=== PATIENT | female | born 2000 ===

== ENCOUNTER 2025-08-04 16:36 | Inpatient (IN) | payer OTHER, SELFPAY ==
--- OUTSIDE RECORDS SUMMARY | 2025-08-03 09:50 | XMS_ITS | Encounter Summary ---
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 Recently Administered Medications Times are shown in EDT. Scheduled Medication Order 08/02/2025 08/03/2025 08/04/2025 haloperidoL (HALDOL) tablet 5 mg (COMPLETED) 5 mg, Oral, Once, 1 dose, On Fri08/03/25 at 1038 1045 (Given - Provider: Etelvina Coe RN) haloperidol lactate (HALDOL) injection 5 mg (COMPLETED) 5 mg, Intramuscular, Once, 1 dose, On Fri08/03/25 at 1635 1648 (Given - Provider: Etelvina Coe RN) LORazepam (ATIVAN) injection 2 mg (COMPLETED) 2 mg, Intramuscular, Once, 1 dose, On Fri08/03/25 at 1635 1647 (Given - Provider: Etelvina Coe RN) LORazepam (ATIVAN) tablet 2 mg (COMPLETED) 2 mg, Oral, Once, 1 dose, On Fri08/03/25 at 1038 1045 (Given - Provider: Etelvina Coe RN) melatonin Tab 5 mg (COMPLETED) 5 mg, Oral, Once, 1 dose, On Yumiko 08/04/25 at 0314 0316 (Given - Provid er: Samanta Humphrey RN) PRN Medication Order 08/02/2025 08/03/2025 08/04/2025 hydrOXYzine pamoate (VISTARIL) capsule 25 mg 25 mg, Oral, 3 times daily PRN, Starting on Yumiko 08/04/25 at 0925, Until Discontinued, anxiety 0932 (Given - Provid er: Reene Silva RN)1423 (Given - Provider: Renee Silva RN) documented in this encounter Care Teams Junction Maker Relationship Specialty Start Date End Date Vandana Darling NP [address] [place] [address] PCP - General 08/03/25 Vandana Darling NP [address] [place] [address] PCP - Insurance Assigned PCP 08/04/25 documented as of this encounter
--- OUTSIDE RECORDS SUMMARY | 2025-08-04 17:25 | XMS_ITS | Encounter Summary ---
Author Organization [facility] Address [address] [place] [address] Care Team Providers Care Legal Biller Name Role Phone Vandana Darling NP Primary Care Provider [phone] Encounter Details Date Type Department Care Team (Latest Contact Info) Description 08/03/2025 Travel Social History Tobacco Use Types Packs/Day Years [...] any time in the past 12 m [facility], were you homeless or living in a care home (including now)? Patient declined 08/03/2025 [facility] Utilities Answer Date Recorded In the past [...] or rent on time? Patient declined 08/03/20 Number of Places Lived in the Last [...] on file documented as of this encounter Functional Status * Are you deaf or do you have serious difficulty hearing? Answer Date of Assessment Author No 08/03/2025 10:18 AM EDT Miles Klein * Are you blind or do you have serious difficulty seeing, even when wearing glasses? Answer Date of Assessment Author No 08/03/2025 10:18 AM EDT Miles Klein * Do you have serious difficulty walking or climbing stairs? Answer Date of Assessment Author No 08/03/2025 10:18 AM EDT Miles Klein * Do you have difficulty dressing or bathing? Answer Date of Assessment Author No 08/03/2025 10:18 AM Miles Dickson * Because of a physical, mental, or emotional condition, do you have difficulty doing errands alone such as visiting the doctor? Answer Date of Assessment Author No 08/03/2025 10:18 AM Miles Dickson documented as of this encounter Mental Status * Because of a physical, mental, or emotional condition, do you have serious difficulty concentrating, remembering, or making decisions? Answer Entry Date Author No 08/03/2025 10:18 AM Miles Dickson documented in this encounter Plan of Treatment Not on file documented as of this encounter Visit Diagnoses Not on filedocumented in this encounter Care Teams Legal Biller Relationship Specialty Start Date End Date Vandana Darling NP [address] [place] [id number] PCP - General 08/03/25 documented as of this encounter
--- OUTSIDE RECORDS SUMMARY | 2025-08-04 17:25 | XMS_ITS | Clinical Summary ---
Author Organization [facility] Address [address] [place] [address] Care Team Providers Care Hooker Operator Name Role Phone Vandana Darling JAVA CONSULTANT Primary Care Provider [phone] Vandana Darling JAVA CONSULTANT Unavailable Allergies No known active allergies Encounters Date Type Department Care Team Description 08/03/2025 9:50 AM EDT - 08/04/2025 2:31 PM EDT Hospital Encounter [facility] Emergency Department [address] [place] [address] Frances Jernigan MD Landry, Alden M, MD Brody, Joshua, MD Gershaw, Rachel, Suicidal ideation (Primary Dx); Post traumatic stress disorder (PTSD) [F43.10]; Bipolar affective disorder, remission status unspecified (HCC) [F31.9]; Borderline personality disorder in adult (HCC) [F60.3]; Schizoaffective disorder, bipolar type (HCC) [F25.0] Discharge Disposition: Psychiatric Hospital 08/03/2025 Travel from Last 3 Months Social History Tobacco Use Types Packs/Day Years [...] any time in the past 12 m [facility], were you homeless or living in a assisted (including now)? Patient declined 08/03/2025 [facility] Utilities Answer Date Recorded In the past [...] Not on file N ot on file Last Filed Vital Signs Vital Sign Reading [...] Mass Index 33.63 08/03/2025 10:03 AM EDT Plan of Treatment Health Maintenance Due Date Last Done Comments Depression Screening 2005 Chlamydia and Gonorrhea Screening 2016 Hepatitis C Screening 2019 DTaP,Tdap,and Td Vaccines (1 - Tdap) 2020 Cervical Cancer Screening 2022 Pap Smear 2022 COVID-19 Vaccine ( - 2023-2 5 season) 2025 Influenza Vaccine (#1) 2025 Blood Pressure 08/04/2026 08/04/2025 Meningococcal B Vaccines Aged Out No longer eligible based on patient's age to complete this topic Meningococcal Vaccines Aged Out No lo nger eligible based on patient's age to complete this topic Pneumococcal Vaccine: Pediat rics (0 to 5 Years) and At-Risk Patients (6 to 64 Years) Aged Out No longer eligi ble based on patient's age to complete this topic Procedures Procedure Name Priority Date/Time Associated Diagnosis Comments DRUG SCREEN, URINE STAT 08/04/2025 3: 12 AM EDT ECG 12-LEAD STAT 08/03/2025 12:17 PM EDT CBC AND DIFFERENTIAL STAT 08/03/2025 10:16 AM EDT RAINBOW DRAW STAT 08/03/2025 10:16 AM EDT CBC AND DIFFERENTIAL STAT 08/03/2025 10:16 AM EDT AWAD TOP STAT 08/03/2025 10:16 AM EDT LIGHT BLUE TOP STAT 08/03/2025 10:16 AM EDT HCG, QUANTITATIVE STAT 08/03/2025 10: 16 AM EDT TOXICOLOGY SCREEN, BLOOD STAT 08/03/2025 10:16 AM EDT BASIC METABOLIC PANEL STAT 08/03/2025 10:16 AM EDT from Last 3 Months Results * (ABNORMAL) Drug Screen, Urine (08/04/2025 3:12 AM EDT) [facility] Amphetamines Screen, Urine Negative Negative 08/04/2025 3:55 AM [facility] Barbiturates Screen, Urine Negative Negative 08/04/2025 3:55 AM [facility] Benzodiazepine Screen, Urine Positive(A) Negative 08/04/2025 3:55 AM [facility] Buprenorphine Screen, Urine Negative Negative 08/04/2025 3:55 AM [facility] Cannabinoids Screen, Urine Positive(A) Negative 08/04/2025 3:55 AM [facility] Cocaine Metabolite Screen, Urine Negative Negative 08/04/2025 3:55 AM [facility] Fentanyl Screen, Urine Negative Negative 08/04/2025 3:55 AM [facility] Methadone Screen, Urine Negative Negative 08/04/2025 3:55 AM [facility] Opiates Screen, Urine Negative Negative 08/04/2025 3:55 AM [facility] Oxycodone Screen, Urine Negative Negative 08/04/2025 3:55 AM [facility] Comment 08/04/2025 3:55 AM [facility] Comment: The cut-off concentration for a [...] 3:12 AM EDT 08/04/2025 3:15 AM EDT Frances Jernigan MD URINE ORDERABLES Final Result Performing Organization Address [facility] Co de Phone Number [facility] [address] [place] [address], [place] * ECG 12 lead (08/03/2025 12:17 PM EDT) 08/03/2025 12:1 8 PM EDT Narrative [facility] CV BIDM ECG - 08/03/2025 12:17 PM EDT See ED note for ECG result information. Frances Jernigan MD ECG ORDERABLES Final Result Performing Organization Address [facility] de Phone Number [facility] BIDM ECG * Awad Top Tube (08/03/2025 10:16 AM EDT) Awad Top Tube Received 08/03/2025 10:21 AM EDT [facility] Blood PERIPHERAL BLOOD SPECIMEN / Unknown Venipuncture / Unknown 08/03/2025 10:16 AM EDT 08/03/2025 10:16 AM EDT us Frances Jernigna MD LAB BLOOD ORDERABLES Final Res ult Performing Organization Address [facility] de Phone Number [facility] [address] [place] [address], [place] * CBC and Differential (08/03/2025 10:16 AM EDT) WBC 7.26 3.90 - 10.80 K/uL 08/03/2025 10:21 AM [facility] RBC 4.23 4.20 - 5.60 M/uL 08/03/2025 10:21 AM [facility] Hemoglobin 12.5 12.0 - 15.2 g/dL 08/03/2025 10:21 AM [facility] Hematocrit 36.4 35.0 - 45.0 % 08/03/2025 10:21 AM [facility] MCH 29.6 25.6 - 32.2 pg 08/03/2025 10:21 AM [facility] MCHC 34.3 32.0 - 36.0 g/dL 08/03/2025 10:21 AM [facility] MCV 86 82 - 102 fL 08/03/2025 10:21 AM [facility] RDW 12.9 12.0 - 15.0 % 08/03/2025 10:21 AM [facility] RDW-SD 40.0 32.9 - 69.6 fL 08/03/2025 10:21 AM [facility] Platelet Count 201 150 - 400 K/uL 08/03/2025 10:21 AM [facility] MPV 8.9 8.5 - 13.0 fL 08/03/2025 10:21 AM [facility] Neutrophil 70.0 43.0 - 74.0 % 08/03/2025 10:21 AM [facility] Lymphocyte 21.8 17.0 - 47.0 % 08/03/2025 10:21 AM [facility] Monocyte 5.9 5.0 - 12.0 % 08/03/2025 10:21 AM [facility] Eosinophil 1.8 0.1 - 6.0 % 08/03/2025 10:21 AM [facility] Basophil 0.4 0.0 - 2.0 % 08/03/2025 10:21 AM [facility] Immature Granulocyte (Hoffmeister, Myelo, Promyelocyte) 0.1 0.0 - 5.0 % 08/03/2025 10:21 AM [facility] Absolute Neutrophil Count 5.08 1.50 - 8.10 K/uL 08/03/2025 10:21 AM [facility] Absolute Immature Granulocyte (Hoffmeister, Myelo, Promyelocyte) 0.01 0.00 - 0.66 K/uL 08/03/2025 10:21 AM [facility] Absolute Lymphocyte Count 1.58 0.95 - 4.20 K/uL 08/03/2025 10:21 AM [facility] Absolute Monocyte Count 0.43 0.20 - 1.20 K/uL 08/03/2025 10:21 AM [facility] Absolute Eosinophil Count 0.13 0.06 - 0.60 K/uL 08/03/2025 10:21 AM [facility] Absolute Basophil Count 0.03 0.01 - 0.12 K/uL 08/03/2025 10:21 AM [facility] Blood PERIPHERAL BLOOD SPECIMEN / Unknown Venipuncture / Unknown 08/03/2025 10:16 AM EDT 08/03/2025 10:16 AM EDT Frances Jernigan MD LAB BLOOD ORDERABLES Final Res ult [facility] [address] [place] [address], [place] * (ABNORMAL) Plasma Toxicology Screen (08/03/2025 10:16 AM EDT) [facility] Acetaminophen Result,Blood <5(L) 10 - 30 ug/mL 08/03/2025 10:49 AM [facility] Alcohol <10 <10 mg/dL 08/03/2025 10:49 AM [facility] Salicylate Level, Blood 2 <30 mg/dL 08/03/2025 10:49 AM [facility] Blood PERIPHERAL BLOOD SPECIMEN / Unknown Venipuncture / Unknown 08/03/2025 10:16 AM EDT 08/03/2025 10:16 AM EDT us Frances Jernigan MD LAB BLOOD ORDERABLES Final Res ult [facility] [address] [place] [address], [place] * Blue Top (08/03/2025 10:16 AM EDT) Blue Top Tube Received 08/03/2025 12:01 PM EDT [facility] Blood PERIPHERAL BLOOD SPECIMEN / Unknown Venipuncture / Unknown 08/03/2025 10:16 AM EDT 08/03/2025 10:16 AM EDT Frances Jernigan MD LAB BLOOD ORDERABLES Final Res ult [facility] [address] [place] [address], [place] * HCG, Serum, QUANTitative (08/03/2025 10:16 AM EDT) [facility] hCG, Quant <5 <5 mIU/mL 08/03/2025 10:47 AM EDT [facility] Comment: Female Reference Range Non-: <0.5 - 4.90 Weeks of Gestation: 3RD Week 5.40 - 72.0 4TH Week 10.2 - 708 5TH Week 217 - 8245 6TH Week 152 - 09779 7TH Week 4059 - 420948 8TH Week 95554 - 315624 9TH Week 31258 - 641382 10TH Week 25531 - 472608 12TH Week 57715 - 109306 14TH Week 72523 - 44033 15TH Week 84092 - 54939 16TH Week 1040 - 21017 17TH Week 8240 - 15603 18TH Week 1275 - 66844 Blood PERIPHERAL BLOOD SPECIMEN / Unknown Venipuncture / Unknown 08/03/2025 10:16 AM EDT 08/03/2025 10:16 AM EDT us Frances Jernigan MD LAB BLOOD ORDERABLES Final Res ult [facility] [address] [place] [address], [place] * Basic Metabolic Panel (08/03/2025 10:16 AM EDT) [facility] Sodium 141 135 - 146 mmol/L 08/03/2025 10:43 AM [facility] Potassium 4.1 3.4 - 5.2 mmol/L 08/03/2025 10:43 AM [facility] Chloride 106 98 - 110 mmol/L 08/03/2025 10:43 AM [facility] Total CO2/Bicarbonat e 24 24 - 32 mmol/L 08/03/2025 10:43 AM [facility] Anion Gap 10 2 - 15 mmol/L 08/03/2025 10:43 AM [facility] BUN 12 6 - 20 mg/dL 08/03/2025 10:43 AM [facility] Creatinine, Blood 0.60 0.50 - 1.10 mg/dL 08/03/2025 10:43 AM [facility] Glucose, Blood 94 70 - 100 mg/dL 08/03/2025 10:43 AM [facility] Calcium 9.1 8.5 - 10.5 mg/dL 08/03/2025 10:43 AM [facility] Estimated GFR(CKD-EPI) >120 >=60 mL/min/BSA 08/03/2025 10:43 AM [facility] Blood PERIPHERAL BLOOD SPECIMEN / Unknown Venipuncture / Unknown 08/03/2025 10:16 AM EDT 08/03/2025 10:16 AM EDT us Frances Jernigan MD LAB BLOOD ORDERABLES Final Res ult [facility] [address] [place] [address], from Last 3 Months Insurance [facility] Advance Directives * Full Code (Latest Code Status on File) Date Activated Date Inactivated Comments 08/03/2025 12:48 PM Question Answer Comments Discussed with/per: Not Discussed Reason: Section 12 Care Teams Hooker Operator Relationship Specialty Start Date End Date Vandana Darling NP [address] [place] [address] PCP - General 08/03/25 Vandana Darling NP [address] [place] [address] PCP - Insurance Assigned PCP 08/04/25
[2025-08-04 17:53] VITALS: BMI 34.4
[2025-08-04 17:54] VITALS: BP 119/72; PULSE 88; RESP 16; TEMP 36.8; O2SAT 98
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
[2025-08-04 20:00] VITALS: BP 118/79; PULSE 88; RESP 18; TEMP 36.8; O2SAT 97
[2025-08-04] MEDS: Buprenorphine/Naloxone 2/0.5mg FILM 1 FILM SUBLINGUAL (20:19)
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
[2025-08-05 08:15] VITALS: BP 113/56; PULSE 79; TEMP 36.9; O2SAT 98
[2025-08-05] MEDS: Buprenorphine/Naloxone 2/0.5mg FILM 1 FILM SUBLINGUAL ×2 (08:41→20:52)
[2025-08-05] MEDS: Nicotine 21 MG PATCH.TD24 TRANSDERMA (08:46)
[2025-08-05 09:06] LABS: Hemoglobin A1C 111.9494 umol/L; Total Hemoglobin (HGBA1C) 3226.9199 umol/L
[2025-08-05 09:21] LABS: Alanine Aminotransferase 12 U/L (0-31); Albumin Level 5.0 g/dL (3.5-5.0); Alkaline Phosphatase 77 U/L (39-117); Anion Gap 10 (12-20); Aspartate Amino Transferase 30 U/L (5-31); Blood Urea Nitrogen 15 mg/dL (9-16); Calcium 9.6 mg/dL (8.4-10.2); Carbon Dioxide 26 mmol/L (22-29); Chloride 108 mmol/L (96-108); Cholesterol 146 mg/dL (<200); Creatinine Clr Calc Pharmacy 111.4; Estimated Glomerular Filt Rate > 60; HDL Cholesterol 53 mg/dL (>40); Potassium 4.2 mmol/L (3.3-5.1); Sodium 140 mmol/L (135-145); Total Protein 7.4 g/dL (6.5-8.0); Triglycerides 59 mg/dL (<150)
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
[2025-08-05] MEDS: guanFACINE HCl ER 1 MG TAB.ER.24H PO (12:37)
[2025-08-05 20:00] VITALS: BP 110/68; PULSE 96; RESP 19; TEMP 36.9; O2SAT 98
[2025-08-06 08:00] VITALS: BP 113/55; PULSE 61; TEMP 36.6; O2SAT 97
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
[2025-08-06] MEDS: Buprenorphine/Naloxone 2/0.5mg FILM 1 FILM SUBLINGUAL ×2 (10:08→20:53)
[2025-08-06] MEDS: guanFACINE HCl ER 1 MG TAB.ER.24H PO (10:09)
[2025-08-06] MEDS: Nicotine 21 MG PATCH.TD24 TRANSDERMA (10:09)
[2025-08-07 08:00] VITALS: BP 87/54; PULSE 65; TEMP 36.4; O2SAT 97
[2025-08-07] MEDS: guanFACINE HCl ER 1 MG TAB.ER.24H PO (09:52)
[2025-08-07] MEDS: Buprenorphine/Naloxone 2/0.5mg FILM 1 FILM SUBLINGUAL ×2 (09:53→20:56)
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
[2025-08-07 20:00] VITALS: BP 103/55; PULSE 87; TEMP 37.2; O2SAT 99
[2025-08-08 08:32] VITALS: BP 96/52; PULSE 65; TEMP 36.8; O2SAT 95
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
[2025-08-08] MEDS: Buprenorphine/Naloxone 2/0.5mg FILM 1 FILM SUBLINGUAL ×2 (10:12→20:45)
[2025-08-08] MEDS: guanFACINE HCl ER 1 MG TAB.ER.24H PO (10:13)
[2025-08-08] MEDS: Dry Mouth Spray 60 ML SPRAY 1 SPRAY MUCOUS MEM ×2 (10:14→11:35)
[2025-08-08 20:00] VITALS: BP 112/59; PULSE 87; TEMP 37.2; O2SAT 98
[2025-08-09] MEDS: Dry Mouth Spray 60 ML SPRAY 1 SPRAY MUCOUS MEM (05:01)
[2025-08-09 08:00] VITALS: BP 97/47; PULSE 82; RESP 16; TEMP 36.7; O2SAT 97
[2025-08-09] MEDS: Buprenorphine/Naloxone 2/0.5mg FILM 1 FILM SUBLINGUAL ×2 (09:30→20:57)
[2025-08-09] MEDS: guanFACINE HCl ER 1 MG TAB.ER.24H PO (09:30)
[2025-08-09 10:32] VITALS: BP 110/70
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
[2025-08-09 20:00] VITALS: BP 148/74; PULSE 83; RESP 18; TEMP 36.9; O2SAT 98
[2025-08-10 08:00] VITALS: BP 104/57; PULSE 67; TEMP 36.6; O2SAT 98
[2025-08-10] MEDS: guanFACINE HCl ER 1 MG TAB.ER.24H PO (09:02)
[2025-08-10] MEDS: Buprenorphine/Naloxone 2/0.5mg FILM 1 FILM SUBLINGUAL ×2 (09:04→20:36)
[2025-08-10 19:46] VITALS: BP 96/51; PULSE 82; TEMP 36.7; O2SAT 98
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
[2025-08-11] MEDS: Buprenorphine/Naloxone 2/0.5mg FILM 1 FILM SUBLINGUAL (08:46)
[2025-08-11] MEDS: guanFACINE HCl ER 1 MG TAB.ER.24H PO (08:46)
== END 2025-08-11 11:05 | disposition home or self-care (01) | DRG 753 ==
PROVIDERS: Admitting Provider Psychiatry & Neurology Psychiatry; Visit Provider Psychiatry & Neurology Psychiatry
DX: F31.9 Bipolar disorder, unspecified (principal); R45.851 Suicidal ideations; Z91.148 Patient's other noncompliance with medication regimen for other reason; F11.20 Opioid dependence, uncomplicated; F17.210 Nicotine dependence, cigarettes, uncomplicated; F60.3 Borderline personality disorder; F43.10 Post-traumatic stress disorder, unspecified; F90.9 Attention-deficit hyperactivity disorder, unspecified type; F84.0 Autistic disorder; Z71.6 Tobacco abuse counseling; Z79.899 Other long term (current) drug therapy
CPT/HCPCS: 36415; 80053; 80061; 83036; 84443

== ENCOUNTER → 2025-08-04 16:36 | Outpatient (BNV) | payer OTHER, SELFPAY | PROVIDERS: Admitting Provider Psychiatry & Neurology Psychiatry; Visit Provider Psychiatry & Neurology Psychiatry | DX: F84.0 Autistic disorder (principal); F43.10 Post-traumatic stress disorder, unspecified; F90.9 Attention-deficit hyperactivity disorder, unspecified type | CPT/HCPCS: 99222; 99232 ==

== ENCOUNTER → 2025-08-04 16:36 | Outpatient (BNV) | payer OTHER, SELFPAY | PROVIDERS: Admitting Provider Psychiatry & Neurology Psychiatry; Visit Provider Nurse Practitioner Family | DX: F31.9 Bipolar disorder, unspecified (principal) | CPT/HCPCS: 99221 ==